=== PATIENT | female | born 1935 | race Caucasian/White ===

== ENCOUNTER 2018-09-07 11:29 | Inpatient (IN) | payer MEDICARE, OTHER ==
[~2018-09-07] VITALS: Ht 149.9 cm; Wt 77.3 kg
[2018-09-07] MEDS ORDERED: normal saline 1000ML IV soln IVB ONE (13:30)
[2018-09-07 13:55] LABS: BASOPHILS % (AUTO) 0.1 % (0-1); EOSINOPHILS % (AUTO) 0 % (0-6); HEMATOCRIT 33.6 % (35.0-45.0); HEMOGLOBIN 11.1 g/dl (12.0-16.0); LYMPHOCYTES # (AUTO) 0.8 X10'3 (1.1-4.8); LYMPHOCYTES % (AUTO) 5.4 % (21-51); MEAN CORPUSCULAR HEMOGLOBIN 28.9 PG (27.0-31.0); MEAN CORPUSCULAR HGB CONC 33.2 % (33.0-36.5); MEAN CORPUSCULAR VOLUME 87.2 FL (78-98); MEAN PLATELET VOLUME 8.3 FL (7.4-10.4); MONOCYTES % (AUTO) 6.3 % (2-12); NEUTROPHILS # (AUTO) 13.6 X10'3 (1.8-7.7); NEUTROPHILS % (AUTO) 88.2 % (42-75); PLATELET COUNT 154 X10'3 (140-440); RED BLOOD COUNT 3.85 X10'6 (4.20-5.60); RED CELL DISTRIBUTION WIDTH 14.4 % (11.5-14.5); WHITE BLOOD COUNT 15.5 X10'3 (4.5-11.0)
[2018-09-07 14:10] LABS: ALANINE AMINOTRANSFERASE 19 U/L (12-78); ALBUMIN 2.9 G/DL (3.4-5.0); ALBUMIN/GLOBULIN RATIO 0.9 (1.1-1.5); ALKALINE PHOSPHATASE 73 IU/L (46-116); ANION GAP 11 (8-16); ASPARTATE AMINO TRANSFERASE 18 U/L (10-37); BILIRUBIN,TOTAL 0.7 MG/DL (0.1-1.0); BLOOD UREA NITROGEN 17 MG/DL (7-18); CALCIUM 8.8 MG/DL (8.5-10.1); CHLORIDE 102 MMOL/L (99-107); CREATININE 1.21 MG/DL (0.40-0.90); GLUCOSE 106 MG/DL (70-104); LIPASE 80 U/L (73-393); POTASSIUM 3.6 MMOL/L (3.5-5.1); SODIUM 138 MMOL/L (135-145); TOTAL CARBON DIOXIDE 25.1 MMOL/L (24-32); TOTAL PROTEIN 6.1 G/DL (6.4-8.2); eGFR 43 ML/MIN
[2018-09-07 15:12] LABS: CLARITY,URINE CLOUDY (Clear); COLOR,URINE YELLOW (Yellow); GLUCOSE, URINE NEGATIVE (Neg); KETONES,URINE NEGATIVE (Neg); LEUKOCYTE ESTERASE ,URINE NEGATIVE (Neg); NITRITES, URINE NEGATIVE (Neg); OCCULT BLOOD,URINE TRACE-INTACT (Neg); PROTEIN,URINE 30 mg/dl (Neg); UROBILINOGEN,URINE 0.2 E.U/dL (0.2-1.0)
[2018-09-07 15:15] LABS: UA COLLECTION TYPE CLN CATCH MIDSTREAM
[2018-09-07 15:20] LABS: SQUAMOUS EPITHELIAL CELL,UR FEW /LPF (FEW)
[2018-09-07 15:21] LABS: BACTERIA,URINE 2+ /HPF (Neg); RBC,URINE 0-2 /HPF (0-2)
[2018-09-07] MEDS ORDERED: HYDROcodone/acetaminophen 5mg/325mg tablet PO PRN (15:50)
[2018-09-07] MEDS ORDERED: potassium Cl 40MEQ/NS 500ml 500 ML IV PRN ×2 (15:50)
[2018-09-07] MEDS ORDERED: ondansetron/PF 4mg/2ml inj IV PRN ×2 (15:50→23:10)
[2018-09-07] MEDS ORDERED: mag hydrox/Alum hydrox/simeth 30ml oral suspension PO PRN (15:50)
[2018-09-07] MEDS ORDERED: morphine 2 MG/ML inj. syringe IV PRN (15:50)
[2018-09-07] MEDS ORDERED: magnesium Cl slow-release 64mg tablet PO PRN (15:50)
[2018-09-07] MEDS ORDERED: potassium Cl 20 mEq SR tablet PO PRN ×2 (15:50)
[2018-09-07] MEDS ORDERED: magnesium 4gm in 100ml NS 100 ML IV PRN (15:50)
[2018-09-07] MEDS ORDERED: docusate sod 100mg capsule PO PRN (15:50)
[2018-09-07] MEDS ORDERED: acetaminophen 325mg tablet PO PRN ×2 (15:50)
[2018-09-07] MEDS ORDERED: MULT-38 PO (16:33)
[2018-09-07] MEDS ORDERED: ATEN-169 PO (16:33)
[2018-09-07] MEDS ORDERED: OCUVITE PO (16:33)
[2018-09-07] MEDS ORDERED: LEVO75TA PO (16:33)
[2018-09-07] MEDS ORDERED: SIMV20TA5 PO (16:33)
[2018-09-07] MEDS ORDERED: ASPI-611 PO (16:33)
[2018-09-07] MEDS ORDERED: PARO20TA6 PO (16:33)
[2018-09-07] MEDS ORDERED: CHOL100046 PO (16:33)
[2018-09-07] MEDS ORDERED: BUPIVAcaine/PF 2.5mg/ml (0.25%) 10ml vial ONE (17:38)
[2018-09-07] MEDS ORDERED: LIDOcaine 1% 30ml preserv. free vial ONE (17:38)
[2018-09-07] MEDS: normal saline 1000ml 1,000 ML IV SCH (18:23)
[2018-09-07] MEDS: piperacillin/tazo 3.375gm/50ml 50 ML IV SCH (18:23)
[2018-09-07] MEDS: pantoprazole 40 MG vial IV SCH (19:22)
[2018-09-07] MEDS: heparin, porcine 5000 units/ml vial SQ SCH (19:56)
[2018-09-07 20:00] VITALS: BP 151/62
[2018-09-07] MEDS ORDERED: temazepam 15mg capsule PO PRN (21:00)
[2018-09-07] MEDS ORDERED: sevoflurane 250ml liquid IH ONE (22:34)
[2018-09-07] MEDS ORDERED: fentaNYL/PF 50MCG/1 ML 2ML syringe ONE (22:34)
[2018-09-07] MEDS ORDERED: rocuronium 10mg/ml inj IV ONE (22:35)
[2018-09-07] MEDS ORDERED: propofol inj 20 ML IV ONE (22:36)
[2018-09-07] MEDS ORDERED: ceFOXitin 1000 MG inj ONE (22:49)
[2018-09-07] MEDS ORDERED: dexamethasone sod phosphate 4mg/ml inj. ONE (22:49)
[2018-09-07] MEDS ORDERED: ringers solution, lacted 1,000 ML IV SCH (23:06)
[2018-09-07] MEDS ORDERED: proCHLORperazine 10 MG/2 ml inj IV PRN (23:10)
[2018-09-07] MEDS ORDERED: meperidine/PF 25mg/ml syringe IV PRN ×3 (23:10)
[2018-09-07] MEDS ORDERED: morphine 4 MG/ML inj SYRINge IV PRN ×2 (23:10)
[2018-09-07] MEDS ORDERED: neostigmine methylsulfate 1 MG/ML 10ml vial ONE (23:31)
[2018-09-07] MEDS ORDERED: glycopyrrolate 0.2mg/ml inj ONE (23:31)
[2018-09-07 23:50] VITALS: BP 151/62
[2018-09-08] VITALS (15 sets, daily range): BP systolic 111–159; BP diastolic 58–78
[2018-09-08] MEDS: piperacillin/tazo 3.375gm/50ml 50 ML IV SCH ×2 (00:46→08:02)
[2018-09-08] MEDS: normal saline 1000ml 1,000 ML IV SCH (03:48)
[2018-09-08 07:13] LABS: BASOPHILS % (AUTO) 0 % (0-1); EOSINOPHILS % (AUTO) 0 % (0-6); HEMATOCRIT 32.6 % (35.0-45.0); HEMOGLOBIN 10.9 g/dl (12.0-16.0); LYMPHOCYTES # (AUTO) 0.4 X10'3 (1.1-4.8); LYMPHOCYTES % (AUTO) 2.8 % (21-51); MEAN CORPUSCULAR HGB CONC 33.4 % (33.0-36.5); MEAN PLATELET VOLUME 8.6 FL (7.4-10.4); MONOCYTES # (AUTO) 1.1 X10'3 (0-0.9); MONOCYTES % (AUTO) 7.2 % (2-12); NEUTROPHILS # (AUTO) 13.1 X10'3 (1.8-7.7); PLATELET COUNT 152 X10'3 (140-440); RED BLOOD COUNT 3.75 X10'6 (4.20-5.60); RED CELL DISTRIBUTION WIDTH 14.4 % (11.5-14.5); WHITE BLOOD COUNT 14.6 X10'3 (4.5-11.0)
[2018-09-08 07:34] LABS: ALANINE AMINOTRANSFERASE 99 U/L (12-78); ALBUMIN 2.6 G/DL (3.4-5.0); ALBUMIN/GLOBULIN RATIO 0.7 (1.1-1.5); ALKALINE PHOSPHATASE 203 IU/L (46-116); ANION GAP 11 (8-16); ASPARTATE AMINO TRANSFERASE 167 U/L (10-37); BILIRUBIN,TOTAL 1.7 MG/DL (0.1-1.0); BLOOD UREA NITROGEN 10 MG/DL (7-18); BUN/CREATININE RATIO 11.8 (6.6-38.0); CALCIUM 8.4 MG/DL (8.5-10.1); CHLORIDE 106 MMOL/L (99-107); CREATININE 0.85 MG/DL (0.40-0.90); GLUCOSE 144 MG/DL (70-104); MAGNESIUM 1.9 MG/DL (1.5-2.4); POTASSIUM 3.7 MMOL/L (3.5-5.1); SODIUM 139 MMOL/L (135-145); TOTAL CARBON DIOXIDE 21.9 MMOL/L (24-32); TOTAL PROTEIN 6.3 G/DL (6.4-8.2); eGFR 64 ML/MIN
[2018-09-08] MEDS: K and/or MAG REPLACEMENT MC SCH (08:00)
[2018-09-08] MEDS: heparin, porcine 5000 units/ml vial SQ SCH ×2 (08:02→19:22)
[2018-09-08] MEDS: pantoprazole 40 MG vial IV SCH ×2 (08:02→19:23)
[2018-09-08] MEDS ORDERED: levoFLOXACIN-Levaquin 500mg/D5 100 ML IV SCH (10:50)
[2018-09-08] MEDS: potassium Cl 20mEq in NS 1,000 ML IV SCH (11:54)
[2018-09-08] MEDS: HYDROcodone/acetaminophen 5mg/325mg tablet PO PRN ×2 (15:31→22:27)
[2018-09-08] MEDS ORDERED: Potassium Cl inj 20 MEQ in normal saline 1000ml 1,000 ML IV SCH (15:48)
[2018-09-09] VITALS (28 sets, daily range): BP systolic 130–204; BP diastolic 60–107
[2018-09-09] MEDS: potassium Cl 20mEq in NS 1,000 ML IV SCH ×3 (02:41→21:53)
[2018-09-09 05:04] LABS: BASOPHILS % (AUTO) 0 % (0-1); EOSINOPHILS % (AUTO) 0 % (0-6); HEMATOCRIT 29.4 % (35.0-45.0); HEMOGLOBIN 9.9 g/dl (12.0-16.0); LYMPHOCYTES # (AUTO) 0.6 X10'3 (1.1-4.8); MEAN CORPUSCULAR HEMOGLOBIN 29.2 PG (27.0-31.0); MEAN CORPUSCULAR HGB CONC 33.6 % (33.0-36.5); MEAN CORPUSCULAR VOLUME 87.1 FL (78-98); MEAN PLATELET VOLUME 9.1 FL (7.4-10.4); MONOCYTES # (AUTO) 1.1 X10'3 (0-0.9); MONOCYTES % (AUTO) 7.7 % (2-12); NEUTROPHILS # (AUTO) 12.6 X10'3 (1.8-7.7); NEUTROPHILS % (AUTO) 88.3 % (42-75); PLATELET COUNT 153 X10'3 (140-440); RED BLOOD COUNT 3.37 X10'6 (4.20-5.60); RED CELL DISTRIBUTION WIDTH 14.6 % (11.5-14.5); WHITE BLOOD COUNT 14.3 X10'3 (4.5-11.0)
[2018-09-09 05:36] LABS: ALANINE AMINOTRANSFERASE 273 U/L (12-78); ALBUMIN 2.3 G/DL (3.4-5.0); ALBUMIN/GLOBULIN RATIO 0.7 (1.1-1.5); ALKALINE PHOSPHATASE 270 IU/L (46-116); ANION GAP 11 (8-16); ASPARTATE AMINO TRANSFERASE 213 U/L (10-37); BILIRUBIN,TOTAL 0.5 MG/DL (0.1-1.0); BLOOD UREA NITROGEN 13 MG/DL (7-18); BUN/CREATININE RATIO 18.3 (6.6-38.0); CALCIUM 8.4 MG/DL (8.5-10.1); CHLORIDE 108 MMOL/L (99-107); CREATININE 0.71 MG/DL (0.40-0.90); GLUCOSE 132 MG/DL (70-104); MAGNESIUM 1.8 MG/DL (1.5-2.4); SODIUM 139 MMOL/L (135-145); TOTAL CARBON DIOXIDE 20.4 MMOL/L (24-32); TOTAL PROTEIN 5.8 G/DL (6.4-8.2); eGFR 79 ML/MIN
[2018-09-09] MEDS: K and/or MAG REPLACEMENT MC SCH (08:00)
[2018-09-09] MEDS ORDERED: levoFLOXACIN-Levaquin 250mg/D5 50 ML IV SCH (08:00)
[2018-09-09] MEDS: heparin, porcine 5000 units/ml vial SQ SCH (08:11)
[2018-09-09] MEDS: pantoprazole 40 MG vial IV SCH ×2 (08:11→21:53)
[2018-09-09] MEDS ORDERED: meperidine/PF 100mg/ml syringe ONE (10:45)
[2018-09-09] MEDS ORDERED: fentaNYL/PF 50MCG/1 ML 2ML syringe ONE (10:46)
[2018-09-09] MEDS ORDERED: levoFLOXACIN-Levaquin 500mg/D5 100 ML IV ONE (10:47)
[2018-09-09] MEDS ORDERED: MIDAZolam 5mg/5ml vial ONE (10:47)
[2018-09-09] MEDS ORDERED: iohexol 300 MG/1 ML 50ml polymer ONE (10:47)
[2018-09-09] MEDS ORDERED: glucagon, human recombinant 1mg kit ONE ×2 (10:47)
[2018-09-09] MEDS ORDERED: diphenhydrAMINE 50 mg/ml inj ONE (10:47)
[2018-09-09] MEDS ORDERED: normal saline 1000ml 1,000 ML IV SCH (11:41)
[2018-09-09] MEDS ORDERED: LIDOcaine Viscous 15ml cup PO ONE (11:45)
[2018-09-09] MEDS ORDERED: fentaNYL/PF 50MCG/1 ML 2ML syringe IV PRN (11:45)
[2018-09-09] MEDS ORDERED: MIDAZolam 5mg/5ml vial IV PRN (11:45)
[2018-09-09] MEDS ORDERED: simethicone 40mg/0.6ml oral drops 30ml MC ONE (11:45)
[2018-09-09] MEDS ORDERED: iohexol 300 MG/1 ML 50ml polymer IV ONE (11:45)
[2018-09-09] MEDS ORDERED: glucagon, human recombinant 1mg kit IV PRN (11:45)
[2018-09-09] MEDS ORDERED: naloxone 0.4 mg/ml inj ONE (15:45)
[2018-09-09] MEDS ORDERED: LIDOcaine Viscous 15ml cup ONE (15:46)
[2018-09-09] MEDS: docusate sod 100mg capsule PO SCH (21:54)
[2018-09-10] VITALS: BP 158/73
[2018-09-10 05:36] LABS: ALANINE AMINOTRANSFERASE 309 U/L (12-78); ALBUMIN 2.1 G/DL (3.4-5.0); ALBUMIN/GLOBULIN RATIO 0.6 (1.1-1.5); ALKALINE PHOSPHATASE 277 IU/L (46-116); ANION GAP 10 (8-16); ASPARTATE AMINO TRANSFERASE 167 U/L (10-37); BILIRUBIN,TOTAL 0.7 MG/DL (0.1-1.0); BLOOD UREA NITROGEN 14 MG/DL (7-18); BUN/CREATININE RATIO 21.2 (6.6-38.0); CALCIUM 7.9 MG/DL (8.5-10.1); CHLORIDE 109 MMOL/L (99-107); CREATININE 0.66 MG/DL (0.40-0.90); GLUCOSE 89 MG/DL (70-104); MAGNESIUM 1.6 MG/DL (1.5-2.4); POTASSIUM 3.6 MMOL/L (3.5-5.1); SODIUM 142 MMOL/L (135-145); TOTAL CARBON DIOXIDE 23.2 MMOL/L (24-32); TOTAL PROTEIN 5.5 G/DL (6.4-8.2); eGFR 86 ML/MIN
[2018-09-10 05:45] LABS: BASOPHILS % (AUTO) 0 % (0-1); EOSINOPHILS # (AUTO) 0.1 X10'3 (0-0.9); EOSINOPHILS % (AUTO) 1.4 % (0-6); HEMATOCRIT 28.2 % (35.0-45.0); HEMOGLOBIN 9.4 g/dl (12.0-16.0); LYMPHOCYTES # (AUTO) 0.8 X10'3 (1.1-4.8); LYMPHOCYTES % (AUTO) 9.3 % (21-51); MEAN CORPUSCULAR HEMOGLOBIN 28.8 PG (27.0-31.0); MEAN CORPUSCULAR HGB CONC 33.3 % (33.0-36.5); MEAN CORPUSCULAR VOLUME 86.6 FL (78-98); MONOCYTES % (AUTO) 11.6 % (2-12); NEUTROPHILS # (AUTO) 6.8 X10'3 (1.8-7.7); NEUTROPHILS % (AUTO) 77.7 % (42-75); PLATELET COUNT 176 X10'3 (140-440); RED BLOOD COUNT 3.26 X10'6 (4.20-5.60); RED CELL DISTRIBUTION WIDTH 14.9 % (11.5-14.5); WHITE BLOOD COUNT 8.8 X10'3 (4.5-11.0)
[2018-09-10 07:00] VITALS: BP 140/63
[2018-09-10] MEDS: oxyCODONE IR 5mg (immed. release) tablet PO PRN ×2 (07:12→11:49)
[2018-09-10] MEDS: K and/or MAG REPLACEMENT MC SCH (08:00)
[2018-09-10] MEDS: docusate sod 100mg capsule PO SCH (08:00)
[2018-09-10] MEDS: pantoprazole 40 MG vial IV SCH (08:06)
[2018-09-10] MEDS ORDERED: HYDR-4383 PO (10:19)
[2018-09-10] MEDS ORDERED: levoFLOXACIN 500mg tablet PO SCH (11:00)
== END 2018-09-10 14:15 | disposition home or self-care (01) | DRG 854 ==
LOC: ER 11:29 → ED HOLD 15:48 → EDBEDREQ 16:57 → SUR 3N 18:30 → PACU 23:12 → SUR 3N 09-08 00:43
PROVIDERS: ADMIT Internal Medicine; ATTEND Surgery
PROC: 0FT44ZZ Resection of Gallbladder, Percutaneous Endoscopic Approach (ICD-10-PCS; principal; 2018-09-07 22:34)
PROC: 0FJB8ZZ Inspection of Hepatobiliary Duct, Via Natural or Artificial Opening Endoscopic (ICD-10-PCS; 2018-09-09)
PROC: BF101ZZ Fluoroscopy of Bile Ducts using Low Osmolar Contrast (ICD-10-PCS; 2018-09-09)
DX: A41.9 Sepsis, unspecified organism (principal); K80.00 Calculus of gallbladder with acute cholecystitis without obstruction; N39.0 Urinary tract infection, site not specified; N17.9 Acute kidney failure, unspecified; K66.0 Peritoneal adhesions (postprocedural) (postinfection); K82.A1 Gangrene of gallbladder in cholecystitis; E78.00 Pure hypercholesterolemia, unspecified; E78.5 Hyperlipidemia, unspecified; R79.89 Other specified abnormal findings of blood chemistry; I10 Essential (primary) hypertension; Z66 Do not resuscitate; Z79.899 Other long term (current) drug therapy; Z79.82 Long term (current) use of aspirin
CPT/HCPCS: 36415; 80053; 81001; 83605; 83690; 83735; 85025; 86885; 86900; 86901; 87040; 87070; 87088; 88304; 93005; 96360; 96361; 99152; 99153; 99285; A4620; A7000; C9113; G0378; J0694; J1100; J1200; J1610; J1644; J1956; J2175; J2250; J2310; J2543; J2704; J2710; J3010; J3480; J3490; J7030; J7120; Q9967